=== PATIENT | female | born 1995 | race Caucasian/White ===

== ENCOUNTER 2017-12-12 14:11 | Inpatient (IN) | payer OTHER ==
[2017-12-12 15:25] LABS: HEMATOCRIT 41.3 % (36.0-47.0); HEMOGLOBIN 14.3 g/dl (12.0-15.5); MEAN CORPUSCULAR HEMOGLOBIN 28.7 pg (27.0-33.0); MEAN CORPUSCULAR HGB CONC 34.6 g/dl (32.0-36.5); MEAN CORPUSCULAR VOLUME 82.8 fl (80.0-96.0); PLATELET COUNT, AUTOMATED 246 10^3/uL (150-450); RED BLOOD COUNT 4.99 10^6/uL (4.00-5.40); RED CELL DISTRIBUTION WIDTH 11.9 % (11.5-14.5); WHITE BLOOD COUNT 7.6 10^3/uL (4.0-10.0)
[2017-12-12 15:55] LABS: AMPHETAMINES LEVEL URINE NEGATIVE (NEGATIVE); BARBITURATES URINE NEGATIVE (NEGATIVE); BENZODIAZEPINES URINE NEGATIVE (NEGATIVE); CANNABINOIDS URINE NEGATIVE (NEGATIVE); COCAINE METABOLITE URINE NEGATIVE (NEGATIVE); METHADONE URINE NEGATIVE (NEGATIVE); OPIATES URINE NEGATIVE (NEGATIVE); PHENCYCLIDINE URINE NEGATIVE (NEGATIVE)
[2017-12-12 15:56] LABS: CONTROL LINE HCG INT CTR LINE PRESENT; HCG, SERUM QUALITATIVE NEGATIVE (NEGATIVE)
[2017-12-12 16:08] LABS: ALBUMIN 3.7 GM/DL (3.2-5.2); ALBUMIN/GLOBULIN RATIO 1.09 (1.00-1.93); ALKALINE PHOSPHATASE 111 U/L (45-117); ALT/SGPT 18 U/L (12-78); ANION GAP 12 MEQ/L (8-16); AST/SGOT 11 U/L (7-37); BILIRUBIN,DIRECT 0.1 MG/DL (0.0-0.2); BILIRUBIN,TOTAL 0.6 MG/DL (0.2-1.0); BLOOD UREA NITROGEN 12 MG/DL (7-18); CALCIUM LEVEL 8.7 MG/DL (8.5-10.1); CARBON DIOXIDE LEVEL 21 MEQ/L (21-32); CHLORIDE LEVEL 106 MEQ/L (98-107); CREATININE FOR GFR 0.78 MG/DL (0.55-1.30); ETHYL ALCOHOL (ETHANOL) 0.003 % (0.000-0.010); GLOMERULAR FILTRATION RATE > 60.0 (>60); GLUCOSE, FASTING 239 MG/DL (70-100); POTASSIUM SERUM 4.5 MEQ/L (3.5-5.1); SALICYLATE LEVEL < 1.7 MG/DL (5.0-30.0); SODIUM LEVEL 139 MEQ/L (136-145); TOTAL PROTEIN 7.1 GM/DL (6.4-8.2)
[2017-12-12 16:13] LABS: ACETAMINOPHEN LEVEL < 2.0 UG/ML (10.0-30.0)
[2017-12-12] MEDS ORDERED: traZODone 50 MG TAB PO (16:45)
[2017-12-12] MEDS ORDERED: MOM 30ML SUSPENSION UDC PO (16:45)
[2017-12-12] MEDS ORDERED: MAALOX 30 ML SUSP *UDC PO (16:45)
[2017-12-12] MEDS ORDERED: DEXTROSE 50% 50 ML SYRINGE IV (17:00)
[2017-12-12] MEDS ORDERED: GLUCOSE 4 GM CHEW TABLET PO (17:00)
[2017-12-12] MEDS ORDERED: GLUCAGON FOR INJ 1 MG VIAL (J1610) SC (17:00)
[2017-12-12] MEDS: HumaLOG INSULIN (NovoLOG) PER UNIT SC ×2 (17:19→21:00)
[2017-12-12] MEDS ORDERED: IBUPROFEN 800 MG TAB PO (22:15)
[2017-12-12] MEDS: ACETAMINOPHEN TAB 650MG DOSE (2X325MG) PO (22:15)
[2017-12-12 22:17] LABS: BEDSIDE GLUCOSE 139 MG/DL (70-105)
[2017-12-13] MEDS: GABAPENTIN 400 MG CAP PO ×4 (00:02→21:53)
[2017-12-13 06:33] LABS: BEDSIDE GLUCOSE 192 MG/DL (70-105)
[2017-12-13] MEDS: HumaLOG INSULIN (NovoLOG) PER UNIT SC ×4 (06:41→21:54)
[2017-12-13] MEDS: VITAMIN D 1,000 INTERNATIONAL UNITS TABLET PO (08:25)
[2017-12-13] MEDS: PRENATAL VITAMINS CHEWABLE TABLET PO (08:26)
[2017-12-13] MEDS: FLUoxetine 20 MG CAP PO (08:26)
[2017-12-13] MEDS ORDERED: GABAPENTIN 400 MG CAP PO (09:00)
[2017-12-13 11:32] LABS: BEDSIDE GLUCOSE 186 MG/DL (70-105)
[2017-12-13] MEDS: ACETAMINOPHEN TAB 650MG DOSE (2X325MG) PO (11:33)
[2017-12-13 17:32] LABS: BEDSIDE GLUCOSE 368 MG/DL (70-105)
[2017-12-13 21:54] LABS: BEDSIDE GLUCOSE 291 MG/DL (70-105)
[2017-12-13] MEDS ORDERED: diphenhydrAMINE CREAM 30GM TOP (22:00)
[2017-12-14 05:36] LABS: BEDSIDE GLUCOSE 497 MG/DL (70-105)
[2017-12-14] MEDS: HumaLOG INSULIN (NovoLOG) PER UNIT SC ×2 (05:52→12:08)
[2017-12-14 08:44] LABS: BEDSIDE GLUCOSE 271 MG/DL (70-105)
[2017-12-14] MEDS: VITAMIN D 1,000 INTERNATIONAL UNITS TABLET PO (08:45)
[2017-12-14] MEDS: GABAPENTIN 400 MG CAP PO (08:45)
[2017-12-14] MEDS: BACITRACIN OINT 30GM TOP (08:45)
[2017-12-14] MEDS: BETAMETHASONE VAL 0.1% CR 15 GM TOP (08:45)
[2017-12-14] MEDS: VITAMIN D 50,000 UNITS CAPSULE (ERGOCALCIFEROL 1.25MG) PO (08:45)
[2017-12-14] MEDS: FLUoxetine 20 MG CAP PO (08:45)
[2017-12-14] MEDS: PRENATAL VITAMINS CHEWABLE TABLET PO (08:46)
[2017-12-14 12:09] LABS: BEDSIDE GLUCOSE 518 MG/DL (70-105)
== END 2017-12-14 12:30 | disposition home or self-care (01) | DRG 755 ==
LOC: M ED 14:11 → M ED INP 16:39 → M PSY 19:55
DX: F43.23 Adjustment disorder with mixed anxiety and depressed mood (principal); R45.851 Suicidal ideations; F43.10 Post-traumatic stress disorder, unspecified; F60.3 Borderline personality disorder; E11.9 Type 2 diabetes mellitus without complications; F90.9 Attention-deficit hyperactivity disorder, unspecified type; Z79.4 Long term (current) use of insulin; Z79.899 Other long term (current) drug therapy; Z88.0 Allergy status to penicillin; Z88.8 Allergy status to other drugs, medicaments and biological substances; Z91.048 Other nonmedicinal substance allergy status; Z91.030 Bee allergy status

== ENCOUNTER 2022-02-21 18:38 | Emergency (ER) | payer MEDICAID, OTHER, SELFPAY ==
[~2022-02-21] VITALS: Ht 165.1 cm; Wt 90.9 kg
[2022-02-21 18:38] VITALS: BP 136/77
[~2022-02-21 18:38] MED LIST: ALBU17IN INH; ALEV220T26 PO; ARIP1TAB6 PO; BACI50OI TOP; BETA115CR TOP; CEFD300C41 PO; CLEO300C2 PO; D 50CAP PO; DIPHCR TOP; DRIS50003 PO; IBUP-1022 PO; INSUH10VL SC; METH60CA2 PO; NEUR800T PO; PRENCHW PO; PROZ20CA11 PO; PYRI1TAB5 PO
== END 2022-02-21 20:30 | disposition left against medical advice (07) ==
LOC: M ED 18:38
DX: Z53.21 Procedure and treatment not carried out due to patient leaving prior to being seen by health care provider (principal)

== ENCOUNTER → 2024-01-01 | Outpatient (CLI) | payer MEDICAID, MEDICARE, OTHER ==
[~2024-01-01] MED LIST changes: +CEFD1CAP9 PO; -CEFD300C41 PO; +METH60CA PO; -METH60CA2 PO
== END ==
LOC: M PAIN 13:00
PROVIDERS: ATTEND Nurse Practitioner Family
DX: M79.2 Neuralgia and neuritis, unspecified (principal); E10.40 Type 1 diabetes mellitus with diabetic neuropathy, unspecified; F32.A Depression, unspecified; F90.9 Attention-deficit hyperactivity disorder, unspecified type; F43.10 Post-traumatic stress disorder, unspecified; G90.50 Complex regional pain syndrome I, unspecified; F17.200 Nicotine dependence, unspecified, uncomplicated; Z79.4 Long term (current) use of insulin; Z79.899 Other long term (current) drug therapy; Z88.0 Allergy status to penicillin; Z88.5 Allergy status to narcotic agent; Z88.8 Allergy status to other drugs, medicaments and biological substances; Z91.030 Bee allergy status; Z91.048 Other nonmedicinal substance allergy status

== ENCOUNTER → 2024-09-08 | Outpatient (REF) | payer OTHER ==
[2024-09-08 18:47] LABS: ALBUMIN 3.4 G/DL (3.2-5.2); ALKALINE PHOSPHATASE 109 U/L (35-104); ALT/SGPT 20 U/L (7.0-40); AST/SGOT < 8 U/L (<34); BILIRUBIN,TOTAL 0.4 MG/DL (0.3-1.2); BLOOD UREA NITROGEN 10 MG/DL (9-23); CALCIUM LEVEL 9.6 MG/DL (8.5-10.1); CARBON DIOXIDE LEVEL 24 MMOL/L (20-31); CHLORIDE LEVEL 107 MMOL/L (98-107); CHOLESTEROL LEVEL 184 MG/DL (<200); CHOLESTEROL RISK RATIO 4.04 (<5); GLOMERULAR FILTRATION RATE 78.2 (>60); GLUCOSE, FASTING 140 MG/DL (60-100); HDL CHOLESTEROL 45.5 MG/DL (>40); LDL CHOLESTEROL 114.9 MG/DL (<100); NON-HDL-C 138.5 MG/DL; POTASSIUM SERUM 4.1 MMOL/L (3.5-5.1); SODIUM LEVEL 142 MMOL/L (136-145); THYROID STIMULATING HORMONE 3.048 uIU/ML (0.55-4.78); TOTAL PROTEIN 6.7 G/DL (5.7-8.2); TRIGLYCERIDES LEVEL 118 MG/DL (<150)
[2024-09-08 18:50] LABS: BASO % 0.5 % (0.0-1.0); EOS # 0.1 10^3/uL (0.0-0.5); EOS % 1.6 % (0.0-3.0); HEMATOCRIT 39.9 % (36.0-47.0); HEMOGLOBIN 13.8 g/dl (12.0-15.5); LYMPH # 2.1 10^3/uL (1.5-5.0); LYMPH % 27.4 % (24.0-44.0); MEAN CORPUSCULAR HEMOGLOBIN 29.3 pg (27.0-33.0); MEAN CORPUSCULAR HGB CONC 34.6 g/dl (32.0-36.5); MEAN CORPUSCULAR VOLUME 84.7 fl (80.0-96.0); MONO # 0.5 10^3/uL (0.0-0.8); MONO % 6.3 % (2.0-8.0); NEUTROPHILS # 4.9 10^3/uL (1.5-8.5); NEUTROPHILS % 64.1 % (36.0-66.0); PLATELET COUNT, AUTOMATED 269 10^3/uL (150-450); RED BLOOD COUNT 4.71 10^6/uL (4.00-5.40); WHITE BLOOD COUNT 7.6 10^3/uL (4.0-10.0)
[2024-09-08 18:53] LABS: HEMOGLOBIN A1c 5.4 % (4.0-6.0)
[2024-09-08 18:55] LABS: HCG, SERUM QUALITATIVE NEGATIVE (NEGATIVE)
== END ==
LOC: M LAB REF 17:43
PROVIDERS: ATTEND Nurse Practitioner Family
DX: E66.3 Overweight (principal); N92.6 Irregular menstruation, unspecified; R53.83 Other fatigue; Z11.9 Encounter for screening for infectious and parasitic diseases, unspecified